=== PATIENT | male | born 1980 | race Hispanic/Latino ===

== ENCOUNTER 2022-05-19 18:36 | Emergency (ER) | payer OTHER, BC | END 2022-05-19 19:45 | disposition home or self-care (01) | LOC: ERS 18:36 | DX: S16.1XXA Strain of muscle, fascia and tendon at neck level, initial encounter (principal); V89.2XXA Person injured in unspecified motor-vehicle accident, traffic, initial encounter | CPT/HCPCS: 99283 ==